=== PATIENT | male | born 1990 | race Caucasian/White ===

== ENCOUNTER 2017-11-03 22:49 | Emergency (ER) | payer SELFPAY ==
[2017-11-03] MEDS: LORazepam 1 MG TABLET PO ×2 (23:30)
[2017-11-03] MEDS ORDERED: HYDROcodone/APAP 5/325MG 1 TAB TABLET PO ×2 (23:45)
[2017-11-03] MEDS: ONDANSETRON ODT 4 MG TAB.RAPDIS. PO ×2 (23:56)
== END 2017-11-04 00:29 | disposition home or self-care (01) ==
LOC: ER 11-04 00:29
DX: F13.239 Sedative, hypnotic or anxiolytic dependence with withdrawal, unspecified (principal); R56.9 Unspecified convulsions; T42.4X5A Adverse effect of benzodiazepines, initial encounter; I10 Essential (primary) hypertension; F41.9 Anxiety disorder, unspecified; Z79.899 Other long term (current) drug therapy; Y92.89 Other specified places as the place of occurrence of the external cause
CPT/HCPCS: 99283; Q0162

== ENCOUNTER 2019-04-29 12:19 | Emergency (ER) | payer SELFPAY ==
[~2019-04-29] VITALS: Ht 185.4 cm; Wt 122.5 kg
[~2019-04-29 12:19] MED LIST: VALIUM10 MG PO
[2019-04-29] MEDS ORDERED: DIAZ5TAB PO (12:42)
--- NOTE | 2019-04-29 12:42 | PHYS DOC ---
Past Medical History Past Medical History: Hypertension, Other Additional Past Medical Histor: WITHDRAW SEIZURES Past Surgical History: No Surgical History Additional Past Surgical Histo: wrist right Alcohol Use: None Drug Use: None, Benzodiazepine Adult General Chief Complaint Chief Complaint: NEURO SYMPTOMS/DEFICITS HPI HPI Patient is a 29-year-old anxious male who presents with palpitations. Patient states he gets very anxious whenever he feels anything going on in his chest secondary to the fact that his mother back in September. Patient states he ordinarily takes alprazolam however he has been out for several days. He denies any shortness of breath or dyspnea on exertion. He denies any illicit drugs. Patient states the palpitations resolved spontaneously at home prior to his arrival here. He states he was seen at another hospital for the same thing several months ago.[] Review of Systems Review of Systems Constitutional: Denies fever or chills [] Eyes: Denies change in visual acuity, redness, or eye pain [] HENT: Denies nasal congestion or sore throat [] Respiratory: Denies cough or shortness of breath [] Cardiovascular: Reports palpitations[] GI: Denies abdominal pain, nausea, vomiting, bloody stools or diarrhea [] : Denies dysuria or hematuria [] Musculoskeletal: Denies back pain or joint pain [] Integument: Denies rash or skin lesions [] Neurologic: Denies headache, focal weakness or sensory changes [] Endocrine: Denies polyuria or polydipsia [] Psychiatric: Reports anxiety All other systems were reviewed and found to be within normal limits, except as documented in this note. Current Medications Current Medications Current Medications Medications (Trade) Dose Ordered Sig/[facility] Start Time Stop Time Status Last Admin Dose Admin Diazepam (Valium) 5 mg 1X ONCE 04/29/19 13:00 04/29/19 13:01 04/29/19 12:40 5 MG Allergies Allergies Allergies Coded Allergies Type Severity Reaction Last Updated Verified No Known Drug Allergies 11/30/15 No Physical Exam Physical Exam Constitutional: Well developed, well nourished, no acute distress, non-toxic appearance. [] HENT: Normocephalic, atraumatic, bilateral external ears normal, oropharynx moist, no oral exudates, nose normal. [] Eyes: PERRLA, EOMI, conjunctiva normal, no discharge. [] Neck: Normal range of motion, no tenderness, supple, no stridor. [] Cardiovascular: Regular rhythm Tachycardic no murmur[] Lungs & Thorax: Bilateral breath sounds clear to auscultation [] Abdomen: Bowel sounds normal, soft, no tenderness, no masses, no pulsatile masses. [] Skin: Warm, dry, no erythema, no rash. [] Back: No tenderness, no CVA tenderness. [] Extremities: No tenderness, no cyanosis, no clubbing, ROM intact, no edema. [] Neurologic: Alert and oriented X 3, normal motor function, normal sensory function, no focal deficits noted. [] Psychologic: Extremely anxious. [] Current Patient Data Vital Signs Vital Signs Date Time Temp Pulse Resp B/P (MAP) Pulse Ox O2 Delivery O2 Flow Rate FiO2 04/29/19 12:32 98.4 124 14 140/95 (110) 100 Room Air 98.4 EKG EKG [] Interpretation Time: EKG: Sinus tachycardia rate of [address]-T changes Radiology/Procedures Radiology/Procedures [] Course & Med Decision Making Course & Med Decision Making Pertinent Labs and Imaging studies reviewed. (See chart for details) [ED course: Evaluation reveals an anxious 29-year-old male. It is quite evident that his symptoms are related to panic disorder. He's been out of his Xanax for several days. I went ahead and gave him a Valium here in the emergency department and I'll treat him for couple of days with Valium until he can get into see his primary care physician] Dragon Disclaimer Dragon Disclaimer This electronic medical record was generated, in whole or in part, using a voice recognition dictation system. Departure Departure Impression: Primary Impression: Anxiety attack Additional Impression: Palpitations Disposition: 01 HOME, SELF-CARE Condition: STABLE Referrals: XANDER LENTZ (PCP) Patient Instructions: Anxiety and Panic Attacks, Palpitations Additional Instructions: Follow with her primary care physician to get a refill on your anxiety medication. Return to the emergency department with any new or concerning symptoms Scripts Diazepam (VALIUM) 5 Mg Tablet 5 MG PO Q8HRS PRN for ANXIETY / AGITATION, #15 TAB Prov: YI CHASE DO 04/29/19 Problem Qualifiers YI CHASE DO Apr 29, 2019 12:42
[2019-04-29] MEDS ORDERED: diazePAM 5 MG TABLET PO ONE (13:00)
[2019-04-29 13:14] VITALS: BP 156/98
--- NOTE | 2019-04-30 06:50 | EKG ---
[facility] [address] [place] [address] Test Date: 2019-04-29 Test Time: 12:43:40 Pat Name: MAMADOU STAHL Department: Room: Gender: M Study Assistant: : 1990 Requested By: YI CHASE Order Number: [id number] Reading MD: Measurements Intervals [place] Rate: 113 P: 47 IN: 174 QRS: 67 QRSD: 104 T: 29 QT: 318 QTc: 442 Interpretive Statements SINUS TACHYCARDIA QRS(T) CONTOUR ABNORMALITY CONSIDER ANTEROSEPTAL MYOCARDIAL DAMAGE POSSIBLY ABNORMAL ECG RI6.01 No previous ECG available for comparison
== END 2019-04-29 13:19 | disposition home or self-care (01) ==
LOC: ER 12:19
DX: F41.9 Anxiety disorder, unspecified (principal); R00.2 Palpitations; I10 Essential (primary) hypertension
CPT/HCPCS: 93005; 99283

== ENCOUNTER 2019-06-14 03:14 | Emergency (ER) | payer SELFPAY ==
[~2019-06-14] VITALS: Ht 177.8 cm; Wt 122.5 kg
[~2019-06-14 03:14] MED LIST changes: +DIAZ5TAB PO
[2019-06-14] MEDS ORDERED: LORA0.5T96 PO (03:24)
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
[2019-06-14 03:32] VITALS: BP 170/86
[2019-06-14] MEDS ORDERED: LORazepam 0.5 MG TABLET PO ONE (03:45)
== END 2019-06-14 03:49 | disposition home or self-care (01) ==
LOC: ER 03:14
DX: F41.9 Anxiety disorder, unspecified (principal); R00.2 Palpitations; R00.0 Tachycardia, unspecified; Z76.0 Encounter for issue of repeat prescription
CPT/HCPCS: 99283

== ENCOUNTER 2019-07-05 00:39 | Emergency (ER) | payer SELFPAY ==
[~2019-07-05] VITALS: Ht 185.4 cm; Wt 113.4 kg
[2019-07-05 00:39] VITALS: BP 148/77
[~2019-07-05 00:39] MED LIST changes: +LORA0.5T96 PO
[2019-07-05 00:56] LABS: BASO # 0.1 x10^3/uL (0.0-0.2); BASO % 1 % (0-3); EOS # 0.1 x10^3/uL (0.0-0.7); EOS % 1 % (0-3); HEMATOCRIT 41.7 % (39.0-53.0); HEMOGLOBIN 14.1 g/dL (13.0-17.5); LYMPH # 3.1 x10^3/uL (1.0-4.8); LYMPH % 27 % (24-48); MEAN CORPUSCULAR HEMOGLOBIN 31 pg (25-35); MEAN CORPUSCULAR HGB CONC 34 g/dL (31-37); MEAN CORPUSCULAR VOLUME 92 fL (79-100); MONO # 1.8 x10^3/uL (0.0-1.1); MONO % 16 % (0-9); NEUT # 6.6 x10^3/uL (1.8-7.7); NEUT % 56 % (31-73); PLATELET COUNT 325 x10^3/uL (140-400); RED BLOOD COUNT 4.53 x10^6/uL (4.30-5.70); RED CELL DISTRIBUTION WIDTH 14.3 % (11.5-14.5); WHITE BLOOD COUNT 11.7 x10^3/uL (4.0-11.0)
[2019-07-05] MEDS ORDERED: IV NORMAL SALINE 1000ML BAG 1,000 ML IV SCH (01:00)
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
[2019-07-05 01:11] LABS: BILIRUBIN,URINE NEGATIVE (NEG); CLARITY,URINE CLEAR; COLOR,URINE YELLOW; NITRITE,URINE NEGATIVE (NEG); PH,URINE 5.5; PROTEIN,URINE NEGATIVE (NEG-TRACE); UROBILINOGEN,URINE 0.2 mg/dL (0.2 mg/dL)
[2019-07-05 01:15] LABS: BACTERIA,URINE 0 /HPF (0-FEW); HYALINE CASTS, URINE MODERATE /HPF; RBC,URINE 0 /HPF (0-2); SQUAMOUS EPITHELIAL CELL,UR OCC /LPF
[2019-07-05 01:17] LABS: BARBITURATES NEG (NEG); BENZODIAZEPINES POS (NEG); CANNABINOIDS POS (NEG); COCAINE NEG (NEG); METHADONE NEG (NEG); OPIATES POS (NEG); PHENCYCLIDINE NEG (NEG)
[2019-07-05 01:18] LABS: AMPHETAMINE/METHAMPHETAMINE POS (NEG)
== END 2019-07-05 01:42 | disposition home or self-care (01) ==
LOC: ER 00:39
DX: F15.10 Other stimulant abuse, uncomplicated (principal); R56.9 Unspecified convulsions; F41.9 Anxiety disorder, unspecified
CPT/HCPCS: 36415; 80307; 81001; 83735; 85025; 99284; G0480; J7030